=== PATIENT | female | born 1980 | race Asian ===

== ENCOUNTER → 2017-09-19 | Outpatient (CLI) | payer BC, MEDICAID ==
[~2017-09-19] MED LIST: INSU300I SC; LINA5TAB PO; LISI-170 PO; SITA1TAB5 PO
== END ==
LOC: RAD 15:10
PROVIDERS: ATTEND Family Medicine
DX: R31.9 Hematuria, unspecified (principal); Z87.442 Personal history of urinary calculi
CPT/HCPCS: 76770